=== PATIENT | male | born 1975 | race Caucasian/White ===

== ENCOUNTER 2019-09-15 12:41 | Outpatient (REF) | payer BC, SELFPAY ==
[2019-09-15 19:22] LABS: C-Reactive Protein 0.07 mg/dL (0.0-0.3)
[2019-09-18 11:34] LABS: Hepatitis C Ab w Rflx HCV PCR Negative (Negative)
[2019-09-18 13:00] LABS: Lyme Ab w Rflx to Lyme Confirm Negative (Negative)
[2019-09-18 13:26] LABS: HIV-1/2 Ag & Ab Screen Negative (Negative)
== END 2019-09-15 13:01 ==
LOC: NCHCN 12:41
PROVIDERS: PCP Family Medicine; Visit Provider Family Medicine
DX: M19.90 Unspecified osteoarthritis, unspecified site (principal); Z00.00 Encounter for general adult medical examination without abnormal findings; Z11.4 Encounter for screening for human immunodeficiency virus [HIV]; Z11.59 Encounter for screening for other viral diseases
CPT/HCPCS: 86803; 87389; 86140; 86618

== ENCOUNTER 2020-04-29 16:44 | Outpatient (REF) | payer BC, SELFPAY ==
[2020-05-01 05:43] LABS: SARS-CoV-2 RNA Undetected (Undetected); SARS-CoV-2 Specimen Source Nasopharynx
== END 2020-04-29 17:04 ==
LOC: NCHCN 16:44
PROVIDERS: PCP Family Medicine; Visit Provider Nurse Practitioner Family
DX: Z20.828 Contact with and (suspected) exposure to other viral communicable diseases (principal)
CPT/HCPCS: U0003

== ENCOUNTER 2021-07-23 15:34 | Outpatient (REF) | payer BC, SELFPAY ==
[2021-07-23 16:38] LABS: Hemoglobin A1C 4.8 % (<5.7)
[2021-07-28 15:32] LABS: IgA 99 mg/dL (85-499); Interpretation (See Note); Tissue Transglutaminase IgA <1.2 U/mL (<4.0)
== END 2021-07-23 15:35 | disposition home or self-care (01) ==
LOC: NCHCN 15:34
PROVIDERS: PCP Family Medicine; Visit Provider Family Medicine
DX: Z00.00 Encounter for general adult medical examination without abnormal findings (principal); Z83.79 Family history of other diseases of the digestive system
CPT/HCPCS: 82784; 83516; 83036

== ENCOUNTER 2021-12-09 13:42 | Emergency (ER) | payer BC, SELFPAY ==
[2021-12-09] VITALS (14 sets, daily range): BP systolic 121–145; BP diastolic 73–86; PULSE 73–87; RESP 11–25; TEMP 36.8–37; O2SAT 97–100
--- NOTE | 2021-12-09 13:30 | RT.EKG_ITS ---
APPROVED REPORT Exam: Resting ECG Reason for Exam: chest pressure Patient Location: E HR:75 bpm ECG Measurements Heart Rate 75 AXIS WV 151 P 56 QRSd 96 QRS 86 QT 364 T 47 QTc 406 Conclusion Sinus rhythm...normal P axis, V-rate 60- 99 ST elev, probable normal early repol pattern...ST elevation, age<55. Sinus. Normal axis. Benign early repolarization. No STEMI. I have reviewed and interpreted ECG and agree with software generated interpretation.
--- NOTE | 2021-12-09 13:42 | W.ED.GENAD ---
Discharge Plan Disposition Patient Disposition: AGAINST MEDICAL ADVICE Condition: Stable Discharge Details Clinical Impression: TIA (transient ischemic attack) Primary Care Provider: Royer Cabrera ED Provider: Ce Brown Home Meds and New Rx's Prescriptions: New aspirin 81 mg tablet,chewable 81 mg PO DAILY Qty: 30 0RF clopidogrel [Plavix] 75 mg tablet 75 mg PO DAILY Qty: 30 0RF Discharge Instructions Instructions: Transient Ischemic Attack (ED) Additional Instructions: Your lab work, EKG and imaging today is reassuring and shows no evidence of acute concerning or significant findings. However, due to your symptom presentation, it is recommended by the emergency department and neurology to stay for admission for further work-up of your symptoms as they may be indicative of a transient ischemic attack or a warning sign of a stroke. Since you have decided to leave the hospital AGAINST MEDICAL ADVICE, it is recommended that you follow-up with your primary care doctor as soon as possible in the next few days for referral for outpatient MRI of your brain, outpatient echocardiogram and outpatient carotid ultrasound. The neurologist is recommending you start aspirin 81 mg daily and Plavix 75 mg daily to take for at least the next 30 days. You are being sent with prescriptions for both of these medications. These medications are antiplatelet medications and indicated in treatment for a transient ischemic attack or possible stroke. You have been placed on care management list to help arrange for follow-up appointment with your primary care doctor for reevaluation within the next few days. You have also been placed on care management list for referral for an appointment with neurology. Return immediately to the emergency department if you develop any worsening or new concerning symptoms. Referrals: Sasha Rai MD [ [facility] STAFF PHYSICIAN] - Discharge Data Discharge Date/Time-TO BE ENTERED AT DEPARTURE: 12/09/21 18:43 Discharge Physician: Ce Brown Medical Decision Making 1415 -- 45-year-old male with no significant past medical history presents the ED with complaint of left hand shaking and paresthesias associated with lightheadedness and palpitations that started approximately 1 hour prior to arrival. Symptoms mostly resolved. He denies any complaint of chest pain. EKG notes a rate of 75, sinus, benign early repol and no STEMI. His vitals are within normal limits. He appears comfortable and nontoxic. He has no focal deficits on exam. Given presentation history and presentation does not appear consistent with ACS, dissection. Consider anxiety, TIA, CVA, less likely seizure, ACS. Will place an IV, bolus IV fluids, screening labs, chest x-ray, CT head. 1530 --labs and imaging reviewed and unremarkable. Normal white blood cell count. Negative D-dimer. Troponin negative. CTA head and neck negative for acute findings. Chest x-ray negative for acute findings. Case discussed with Dr. Rai who discussed that there is a new type of TIA called limb shaking TIA. She recommends a CTA head and neck and admission work-up for TIA. Would recommend dual antiplatelet therapy with 81 mg of aspirin and 75 mg Plavix daily with 300 mg Plavix load. 1700 --CTA head and neck negative. Patient reassessed and he remains asymptomatic. Repeat troponin pending. 1745 -- Repeat EKG unchanged. Repeat troponin negative. Patient reassessed and he remains asymptomatic. Discussed at length with patient that I would recommend admission to the hospital for continued telemetry monitoring with plan for MRI brain in the morning and likely plan for echocardiogram and carotid ultrasound. Patient is declining admission to the hospital. Despite our efforts, the patient has decided to leave against medical advice. He has a normal mental status and full decisional capacity. The patient understands his condition and the risks of leaving AMA, including BUT NOT LIMITED TO permanent disability, , etc., and has had an opportunity to ask questions about his medical condition. The patient has been informed that he may return for care at any time. He has been placed on care management's list to follow up with Dr. Cabrera within the next few days for re-evaluation and for referral for urgent MRI brain, echo, and carotid US as soon as possible. Patient was also placed on care management's list for follow up with Dr. Rai within the next 1 to 2 weeks. Patient was advised to return immediately to the emergency department if he develops any worsening or new concerning symptoms. Medical Records Medical records reviewed: Yes I reviewed the patient's medical records. Imaging Data Radiologic Study: Radiologist's impression: CT BRAIN ? NECK CTA CLINICAL HISTORY: ? L hand shaking, numbness, tingling, r/o acute cva. ? TECHNIQUE:? Imaging Protocol:? Axial CT angiography was performed with multi-slice acquisition and multi-planar and/or 3D reconstructions. CONTRAST MATERIAL:? Intravenous: Omnipaque 350 Contrast volume:structured data in ml Intravenous: Omnipaque 350 Contrast volume:85 COMPARISON:? CT CT HEAD WO from 12/09/2021 FINDINGS: CT Head? W contrast: Ventricles and Extra axial spaces: Normal in size and morphology for the patient's age. Hemorrhage: None. Cerebral parenchyma: Normal. Midline shift: None. Brainstem/Cerebellum: Normal. Calvarium: Normal. Visualized Paranasal sinuses/Mastoids: Chronic sinus disease. Soft Tissues: Unremarkable. Enhancement: Normal. CTA Brain W: Internal Carotid Arteries: Petrous: Normal. Cavernous: Normal. Cerebral: Normal. Middle Cerebral Arteries: Right:? No aneurysm, occlusion or significant stenosis. Left:? No aneurysm, occlusion or significant stenosis. Anterior Cerebral Arteries: Right:? No aneurysm, occlusion or significant stenosis. Left:? No aneurysm, occlusion or significant stenosis. Posterior cerebral Arteries: Right:? No aneurysm, occlusion or significant stenosis. Left:? No aneurysm, occlusion or significant stenosis. Vertebral Arteries: Right:? No aneurysm, occlusion or significant stenosis. Left:? No aneurysm, occlusion or significant stenosis. Basilar Artery:? No aneurysm, occlusion or significant stenosis. CTA Neck W: Common Carotid: Right:? No aneurysm, occlusion or significant stenosis. Left:? No aneurysm, occlusion or significant stenosis. External Carotid: Right:? No aneurysm, occlusion or significant stenosis. Left:? No aneurysm, occlusion or significant stenosis. Internal Carotid: Right:? No aneurysm, occlusion or significant stenosis. Left:? No aneurysm, occlusion or significant stenosis. Vertebral Artery: Right:? No aneurysm, occlusion or significant stenosis. Left:? No aneurysm, occlusion or significant stenosis. Lung Apices: Normal. Bones: Minimal degenerative disc changes.? Soft Tissues: Normal. IMPRESSION: 1. Normal CTA examination of the [place]. 2. Unremarkable CT Head. 3. Normal CTA examination of the neck.? No evidence of dissection.? CT HEAD WO CLINICAL HISTORY: ? L hand numbness/shaking, r/o cva. ? TECHNIQUE:? Imaging Protocol: Axial computed tomography images with coronal and sagittal reformatted images were created and reviewed COMPARISON:? No exams were available for comparison FINDINGS: Ventricles and Extra axial spaces: Normal in size and morphology for the patient's age. Hemorrhage: None. Cerebral parenchyma: Normal. Midline shift: None. Brainstem/Cerebellum: Normal. Calvarium: Normal. Visualized Paranasal sinuses/Mastoids: Mucous retention in within maxillary, ethmoid and frontal sinuses.? Soft Tissues: Unremarkable. IMPRESSION: Chronic sinus disease.? No acute intracranial process. ?XR CHEST 2V PA ? LATERAL CLINICAL HISTORY:? palpitations, fluttering, r/o acute disease TECHNIQUE:? 2D digital imaging was performed. COMPARISON:? No exams were available for comparison FINDINGS: MEDIASTINUM: Normal.? HEART: Normal. PULMONARY VASCULATURE: Normal. LUNGS: Clear.? Hyperinflation. PLEURAL SPACE: No pleural effusion or pneumothorax. BONE:Unremarkable for age.? IMPRESSION: Hyperinflation no acute abnormality.? Lab Data Lab results reviewed: Yes I reviewed the patient's lab results. Labs: Laboratory Tests Range/Units 12/09/21 12/09/21 12/09/21 14:04 14:04 14:04 WBC (4.4-10.8) 10^3/uL 5.76 RBC (4.36-5.78) 10^6/uL 4.97 Hgb (13.5-17.5) g/dL 15.6 Hct (40.0-50.0) % 43.8 MCV (80-95) fL 88.1 MCH (27.0-33.0) pg 31.4 MCHC (32.0-36.0) % 35.6 RDW (11.8-14.1) % 12.9 Plt Count (130-400) 10^3/uL 232 MPV (8.0-11.0) fL 9.4 Immature Gran % 0.5 Neutrophils % 60.2 Lymphocytes % 32.5 Monocytes % 5.4 Eosinophils % 0.9 Basophils % 0.5 Nucleated RBC % % 0 Absolute Neutrophils (1.2-6.7) 10^3/uL 3.47 Absolute Lymphocytes (1.2-3.4) 10^3/uL 1.87 Absolute Monocytes (0.1-0.8) 10^3/uL 0.31 Absolute Eosinophils (0.0-0.7) 10^3/uL 0.05 Absolute Basophils (0.0-0.2) 10^3/uL 0.03 D-Dimer (<500) ng/mlFEU 235 Sodium (136-145) mmol/L 141 Potassium (3.5-5.1) mmol/L 3.8 Chloride (98-107) mmol/L 106 Carbon Dioxide (21.0-32.0) mmol/L 29.0 Anion Gap (3-11) mmol/L 6.0 BUN (7-18) mg/dL 14 Creatinine (0.70-1.30) mg/dL 1.0 Estimated GFR/1.73 m2 (mL/min/1.73m2) >= 60.00 Glucose (74-106) mg/dL 149 H Calcium (8.5-10.1) mg/dL 9.0 Magnesium (1.8-2.4) mg/dL 2.1 Total Bilirubin (0.2-1.0) mg/dL 0.6 AST (15-37) U/L 23 ALT (16-63) U/L 31 Alkaline Phosphatase (46-116) U/L 87 Troponin I (<or=60) ng/L < 50 Total Protein (6.4-8.2) g/dL 7.2 Albumin (3.4-5.0) g/dL 4.1 Range/Units 12/09/21 17:10 WBC (4.4-10.8) 10^3/uL RBC (4.36-5.78) 10^6/uL Hgb (13.5-17.5) g/dL Hct (40.0-50.0) % MCV (80-95) fL MCH (27.0-33.0) pg MCHC (32.0-36.0) % RDW (11.8-14.1) % Plt Count (130-400) 10^3/uL MPV (8.0-11.0) fL Immature Gran % Neutrophils % Lymphocytes % Monocytes % Eosinophils % Basophils % Nucleated RBC % % Absolute Neutrophils (1.2-6.7) 10^3/uL Absolute Lymphocytes (1.2-3.4) 10^3/uL Absolute Monocytes (0.1-0.8) 10^3/uL Absolute Eosinophils (0.0-0.7) 10^3/uL Absolute Basophils (0.0-0.2) 10^3/uL D-Dimer (<500) ng/mlFEU Sodium (136-145) mmol/L Potassium (3.5-5.1) mmol/L Chloride (98-107) mmol/L Carbon Dioxide (21.0-32.0) mmol/L Anion Gap (3-11) mmol/L BUN (7-18) mg/dL Creatinine (0.70-1.30) mg/dL Estimated GFR/1.73 m2 (mL/min/1.73m2) Glucose (74-106) mg/dL Calcium (8.5-10.1) mg/dL Magnesium (1.8-2.4) mg/dL Total Bilirubin (0.2-1.0) mg/dL AST (15-37) U/L ALT (16-63) U/L Alkaline Phosphatase (46-116) U/L Troponin I (<or=60) ng/L < 50 Total Protein (6.4-8.2) g/dL Albumin (3.4-5.0) g/dL ECG Data Attestation: I personally reviewed and interpreted this ECG (s) as follows: Interpretation: #1 -- Rate of 75, sinus, benign early repolarization noted in V2 and V3. No STEMI. #2 -- Rate of 78, sinus, benign early repolarization noted in V2 and V3. No STEMI. HPI General Mode of arrival: ambulatory. Date/Time Provider Initiated Documentation: 12/09/21 13:43. Limitations to Documentation: no limitations. Information obtained by: patient. HPI Narrative: Patient is a 45-year-old male with no significant past medical history presents the ED with a complaint of left hand shaking, tingling and numbness extending to his forearm associated with fluttering and palpitations that occurred while sitting eating lunch today. Patient states he had finished painting at home and sat down to eat 9. He states he was working on the computer and noticed shaking of his left hand. He states he then developed tingling and numbness in his left hand, mostly in his fourth and fifth fingers but that extended to his left forearm, mostly on the medial aspect. He states after this he developed a feeling of lightheadedness fluttering or palpitations in his chest. He denies any chest pain, shortness of breath, cough, nausea, vomiting, abdominal pain, headache, or other extremity weakness or numbness. He denies any recent illnesses and states he has been feeling fine before this episode. He states he during a few cuts that he daily and he states he had to cut with him today. He denies any other recent alcohol or drug use. Related Data Home Medications Medication Instructions Recorded Confirmed aspirin 81 mg chewable tablet 81 mg PO DAILY #30 tab 12/09/21 clopidogrel 75 mg tablet (Plavix) 75 mg PO DAILY #30 tab 12/09/21 Previous Rx's Medication Instructions Recorded aspirin 81 mg chewable tablet 81 mg PO DAILY #30 tab 12/09/21 clopidogrel 75 mg tablet (Plavix) 75 mg PO DAILY #30 tab 12/09/21 Allergies Allergy/AdvReac Type Severity Reaction Status Date / Time No Known Allergies Allergy Verified 12/09/21 13:51 General Stated Complaint: Chest Pain JOE: 2 Review of Systems All systems reviewed & are unremarkable except as noted in HPI and below Constitutional Constitutional: Reports as per HPI, Denies chills, Denies excessive sweating, Denies fatigue and Denies fever(s) Eyes Eyes: Denies blurry vision ENT Ears, Nose, Mouth, and Throat: Denies dizziness, Denies sore throat and Denies throat swelling Cardiovascular Cardiovascular: Denies chest pain, Reports rapid heart rate and Denies dyspnea Respiratory Respiratory: Denies cough and Denies dyspnea Gastrointestinal Gastrointestinal: Denies abdominal pain, Denies diarrhea and Denies vomiting Genitourinary Genitourinary: Denies hematuria and Denies dysuria Musculoskeletal Musculoskeletal: Denies back pain and Reports numbness (L hand) Integumentary/Breasts Skin/Breast: Denies lesions and Denies rash Neurologic Neurologic: Denies behavioral changes, Denies confusion, Denies dizziness, Denies localized weakness and Reports numbness (L hand) Psychiatric Psychiatric: Denies behavioral changes, Denies confusion and Denies depression Endocrine Endocrine: Denies excessive sweating and Denies fatigue Hematologic/Lymphatic Hematologic/Lymphatic: Denies easy bruising and Denies lymphadenopathy Allergic/Immunologic Allergic/Immunologic: Denies throat swelling PFSH All Active Problems (Updated 12/09/21 @ 18:06 by Ce Brown DO) TIA (transient ischemic attack) (Acute) Medical History (Updated 12/09/21 @ 18:06 by Ce Brown DO) No significant past medical history Surgical History (Updated 12/09/21 @ 14:59 by Ce Brown DO) H/O vasectomy Social History Smoking/Tobacco Use Status: Never Smoking risk assessment performed?: Yes Alcohol Intake: current Alcohol Intake frequency: a few times a week Drug use: Never Do you feel safe at home: Yes Do you feel safe in your relationship?: Yes Exam Const General: cooperative and healthy appearing Orientation: alert, awake and oriented x3 HENMT Head: normal to inspection Ears: hearing grossly normal bilaterally and external ears normal General nose exam: external nose normal Face and sinus: normal facial exam Mouth: oral mucosae normal Teeth and gingiva: dentition normal Throat: posterior oropharynx normal Eyes General: appearance normal, both eyes and all related structures Eyelids: eyelids normal Pupils: PERRL EOM: EOM intact bilaterally Neck Neck: normal visual inspection Lymphatic: no lymphadenopathy noted Chest Chest: normal inspection of the chest Resp Effort & Inspection: normal respiratory effort and able to speak in complete sentences Auscultation: clear to auscultation bilaterally Cardio Rate: regular rate Rhythm: regular rhythm GI Inspection: normal to inspection Palpation: soft, not firm, no guarding, no hepatosplenomegaly, no masses and nontender Auscultation: normal bowel sounds Back/Spine/Pelvis Back: no CVA tenderness Skin General skin exam: no rashes or lesions noted Neuro General: patient alert, patient awake, moves all extremities, no meningeal signs and no focal motor deficits Cranial Nerves: CN's II-XI intact bilaterally Cognition: normal cognition Speech: speech normal Gait: normal gait Motor: muscle tone normal throughout and strength 5/5 throughout Sensory Exam: no sensory deficits noted Other: Bilateral radial/median/ulnar motor nerve function intact. Altered sensation overlying ulnar nerve distribution of left hand fourth and fifth fingers compared to right hand. Biceps/triceps muscle strength 5/5 b/l. Extrem General: normal to inspection, full ROM and capillary refill normal Other: B/L radial and ulnar pulses intact. Psych Appearance: grossly normal Mental Status: mental status grossly normal Speech and Movement: speech and movement normal Affect: normal affect Thought Process: normal
[2021-12-09 14:14] LABS: Abs Immature Grans 0.03 10^3/uL (0.0-0.06); Absolute Basophil Count 0.03 10^3/uL (0.0-0.2); Absolute Eosinophil Count 0.05 10^3/uL (0.0-0.7); Absolute Lymphocyte Count 1.87 10^3/uL (1.2-3.4); Absolute Monocyte Count 0.31 10^3/uL (0.1-0.8); Absolute Neutrophil Count 3.47 10^3/uL (1.2-6.7); Basophils % 0.5; Eosinophils % 0.9; HCT 43.8 % (40.0-50.0); HGB 15.6 g/dL (13.5-17.5); Immature Grans % 0.5; Lymphocytes % 32.5; MCH 31.4 pg (27.0-33.0); MCHC 35.6 % (32.0-36.0); MCV 88.1 fL (80-95); MPV 9.4 fL (8.0-11.0); Monocytes % 5.4; Neutrophils % 60.2; Nucleated RBC 0 %; Platelet Count 232 10^3/uL (130-400); RBC 4.97 10^6/uL (4.36-5.78); RDW 12.9 % (11.8-14.1); RDW-SD 42.1 fL; WBC 5.76 10^3/uL (4.4-10.8)
[2021-12-09 14:28] LABS: ALT 31 U/L (16-63); AST 23 U/L (15-37); Albumin 4.1 g/dL (3.4-5.0); Alkaline Phosphatase 87 U/L (46-116); BUN 14 mg/dL (7-18); Bilirubin, Total 0.6 mg/dL (0.2-1.0); Chloride 106 mmol/L (98-107); Glucose 149 mg/dL (74-106); Magnesium 2.1 mg/dL (1.8-2.4); Potassium 3.8 mmol/L (3.5-5.1); Sodium 141 mmol/L (136-145); Total Protein 7.2 g/dL (6.4-8.2); Troponin I < 50 ng/L (<or=60)
--- NOTE | 2021-12-09 14:30 | DI.RAD_ITS ---
Exam(s) XR CHEST 2V PA LATERAL EXAM: XR CHEST 2V PA LATERAL CLINICAL HISTORY: palpitations, fluttering, r/o acute disease TECHNIQUE: 2D digital imaging was performed. COMPARISON: No exams were available for comparison FINDINGS: MEDIASTINUM: Normal. HEART: Normal. PULMONARY VASCULATURE: Normal. LUNGS: Clear. Hyperinflation. PLEURAL SPACE: No pleural effusion or pneumothorax. BONE:Unremarkable for age. IMPRESSION: Hyperinflation no acute abnormality. DATA REPOSITORY: RADIATION DOSE DELIVERED:
--- NOTE | 2021-12-09 14:30 | DI.CT_ITS ---
Exam(s) CT HEAD WO EXAM: CT HEAD WO CLINICAL HISTORY: L hand numbness/shaking, r/o cva. TECHNIQUE: Imaging Protocol: Axial computed tomography images with coronal and sagittal reformatted images were created and reviewed COMPARISON: No exams were available for comparison FINDINGS: Ventricles and Extra axial spaces: Normal in size and morphology for the patient's age. Hemorrhage: None. Cerebral parenchyma: Normal. Midline shift: None. Brainstem/Cerebellum: Normal. Calvarium: Normal. Visualized Paranasal sinuses/Mastoids: Mucous retention in within maxillary, ethmoid and frontal sinu ses. Soft Tissues: Unremarkable. IMPRESSION: Chronic sinus disease. No acute intracranial process. RADIATION DOSE DELIVERED: 837.64mGy.cm Total DLP DATA REPOSITORY: All CT scans at this facility are submitted to the National Radiology Data Registry (NRDR) Dose Index Registry (DIR) with the [employer] ([employer]). RADIATION OPTIMIZATION: All CT scans at this facility use at least one of these dose optimization te chniques: automated exposure control; mA and/or kV adjustment per patient size (includes targeted exa ms where dose is matched to clinical indication); or iterative reconstruction.
[2021-12-09 14:39] LABS: D-Dimer 235 ng/mlFEU (<500)
[2021-12-09] MEDS: Normal Saline 1,000 ML 1000 ML IV (14:47)
--- NOTE | 2021-12-09 15:45 | DI.CT_ITS ---
Exam(s) CT BRAIN NECK CTA EXAM: CT BRAIN NECK CTA CLINICAL HISTORY: L hand shaking, numbness, tingling, r/o acute cva. TECHNIQUE: Imaging Protocol: Axial CT angiography was performed with multi-slice acquisition and mu lti-planar and/or 3D reconstructions. CONTRAST MATERIAL: Intravenous: Omnipaque 350 Contrast volume:structured data in ml Intravenous: Omnipaque 350 Contrast volume:85 COMPARISON: CT CT HEAD WO from 12/09/2021 FINDINGS: CT Head W contrast: Ventricles and Extra axial spaces: Normal in size and morphology for the patient's age. Hemorrhage: None. Cerebral parenchyma: Normal. Midline shift: None. Brainstem/Cerebellum: Normal. Calvarium: Normal. Visualized Paranasal sinuses/Mastoids: Chronic sinus disease. Soft Tissues: Unremarkable. Enhancement: Normal. CTA Brain W: Internal Carotid Arteries: Petrous: Normal. Cavernous: Normal. Cerebral: Normal. Middle Cerebral Arteries: Right: No aneurysm, occlusion or significant stenosis. Left: No aneurysm, occlusion or significant stenosis. Anterior Cerebral Arteries: Right: No aneurysm, occlusion or significant stenosis. Left: No aneurysm, occlusion or significant stenosis. Posterior cerebral Arteries: Right: No aneurysm, occlusion or significant stenosis. Left: No aneurysm, occlusion or significant stenosis. Vertebral Arteries: Right: No aneurysm, occlusion or significant stenosis. Left: No aneurysm, occlusion or significant stenosis. Basilar Artery: No aneurysm, occlusion or significant stenosis. CTA Neck W: Common Carotid: Right: No aneurysm, occlusion or significant stenosis. Left: No aneurysm, occlusion or significant stenosis. External Carotid: Right: No aneurysm, occlusion or significant stenosis. Left: No aneurysm, occlusion or significant stenosis. Internal Carotid: Right: No aneurysm, occlusion or significant stenosis. Left: No aneurysm, occlusion or significant stenosis. Vertebral Artery: Right: No aneurysm, occlusion or significant stenosis. Left: No aneurysm, occlusion or significant stenosis. Lung Apices: Normal. Bones: Minimal degenerative disc changes. Soft Tissues: Normal. IMPRESSION: 1. Normal CTA examination of the [place]. 2. Unremarkable CT Head. 3. Normal CTA examination of the neck. No evidence of dissection. RADIATION DOSE DELIVERED: 1,240.48mGy.cm Total DLP 1,240.48mGy.cm Total DLP 1,240.48mGy.cm Total DLP DATA REPOSITORY: All CT scans at this facility are submitted to the National Radiology Data Registry (NRDR) Dose Index Registry (DIR) with the [employer] ([employer]CR). RADIATION OPTIMIZATION: All CT scans at this facility use at least one of these dose optimization te chniques: automated exposure control; mA and/or kV adjustment per patient size (includes targeted exa ms where dose is matched to clinical indication); or iterative reconstruction.
[2021-12-09] MEDS: Normal Saline Flush 10 ML SYR IVP (16:20)
--- NOTE | 2021-12-09 17:00 | RT.EKG_ITS ---
APPROVED REPORT Exam: Resting ECG Reason for Exam: palpitations Patient Location: E HR:78 bpm ECG Measurements Heart Rate 78 AXIS PA 157 P 56 QRSd 88 QRS 84 QT 370 T 47 QTc 421 Conclusion Sinus rhythm...normal P axis, V-rate 60- 99 ST elev, probable normal early repol pattern...ST elevation, age<55. Sinus. Normal axis. Benign early repolarization. No STEMI. I have reviewed and interpreted ECG and agree with software generated interpretation.
[2021-12-09 17:50] LABS: Troponin I < 50 ng/L (<or=60)
--- NOTE | 2021-12-09 18:18 | NUR.NOTE ---
Nursing Note: Referral faxed to PCP/Dr. Cabrera for TIA/needs MRI brain, echo, carotid US/follow up with Dr Cabrera within the next few days. Needs follow up with Dr. Rai within the next week . Gail Christian
[2021-12-09] MEDS: Aspirin 81 MG CHEW CH (18:23)
[2021-12-09] MEDS: Clopidogrel 300 MG TAB PO (18:23)
--- NOTE | 2021-12-10 10:05 | CMACTNOTE_ITS ---
- If Service Date Differs Date of service: 12/10/21 Time of Service: 10:05 Care Management Activity Note Yao is seen in the ED for possible TIA. At the request of ED provider, CM coordinates a referral to [facility] neurology to assist Yao in obtaining a follow up appointment for further evaluation and treatment.
== END 2021-12-09 18:43 | disposition left against medical advice (07) ==
PROVIDERS: Emergency Provider Physician Assistant; PCP Family Medicine
DX: G45.9 Transient cerebral ischemic attack, unspecified (principal); R20.2 Paresthesia of skin; R07.89 Other chest pain; R20.0 Anesthesia of skin; R42 Dizziness and giddiness; Z53.29 Procedure and treatment not carried out because of patient's decision for other reasons; R00.2 Palpitations
CPT/HCPCS: 36415; 70496; 70498; 80053; 93005; 96360; 96361; 99285; 70450; 71046; 83735; 84484; 85025; 85379; 93010

== ENCOUNTER 2021-12-11 10:59 | Outpatient (CLI) | payer BC, SELFPAY ==
--- NOTE | 2021-12-11 10:00 | DI.US_ITS ---
APPROVED REPORT EXAM: Comprehensive 2D, Doppler, and color-flow Echocardiogram Patient Location: Out-Patient Dining Car Hop: Marilyn Rojas RDCS (AE) Indications: TIA, Sudden onset numbness and weakness Other Information Study Quality: Good Conclusion Normal left ventricular wall thickness and chamber size. Estimated ejection fraction is 60%. Wall m otion is normal Normal right ventricular size and systolic function Both atria are normal in size There is no structural or hemodynamically significant valvular disease Wall motion Left Ventricle The left ventricle is normal size. The left ventricular systolic function is normal. The left ventric ular ejection fraction is within the normal range. There is normal left ventricular wall thickness. T here is normal LV segmental wall motion. There is no ventricular septal defect visualized. LVEF is 60 %. Right Ventricle The right ventricle is normal size. The right ventricular systolic function is normal. The RVSP is 27 .4mmHg. Atria The left atrium size is normal. The right atrium size is normal. The interatrial septum is intact wit h no evidence for an atrial septal defect. Aortic Valve The aortic valve is normal in structure. Aortic valve is trileaflet. There is no aortic valvular sten osis. No aortic regurgitation is present. Mitral Valve The mitral valve is normal in structure. No evidence of mitral valve stenosis. Trace mitral regurgita tion. Tricuspid Valve The tricuspid valve is normal in structure. There is no tricuspid valve stenosis. Trace to mild tricu spid regurgitation. Pulmonic Valve The pulmonary valve is normal in structure. There is no pulmonic valvular stenosis. There is no pulmo maurilio valvular regurgitation. Great Vessels The aortic root is normal in size. Ascending aorta is not well visualized. Aortic arch is normal in c aliber. IVC is normal in size and collapses >50% with inspiration. Pericardium There is no pericardial effusion. 2D Dimensions IVSD d PLAX 0.80 cm M: 0.6-1.2 LV Vol A2C d MOD 109.8 mL LVPW d PLAX 0.88 cm M: 0.6 - 1.2 LV Vol A4C d MOD 119.8 mL LVID d PLAX 4.72 cm M: 4.2 - 5.8 LA vol/ BSA A2C s A-L 22.6 mL/m2 LVDs 3.15 cm M: 2.5 - 4.0 LA vol/ BSA A4C s A-L 18.9 mL/m2 Ao Root d 3.20 cm M: 3.1 - 3.7 LA Vol/ BSA Biplane s A-L 20.9 mL/m2 RA Area A4C 13.07 cm2 LA Area A4C s MOD 14.58 cm2 RA Vol/ BSA A4C s A-L 16.5 mL/m2 LA Area A2C s MOD 15.74 cm2 LV EF Teichholz 60.7 % LV EF A4C MOD 59.0 % LVEF (Britt's) 58.52 % M: 52 - 72 LV EF A2C MOD 60.4 % LV Volume 87.94 mL M: 62 - 150 LV EF Biplane MOD 58.5 % LV Volume Index 45.80 mL/m2 M: 34 - 74 SV 67.72 mL LV Vol Biplane MOD 115.7 mL SV Index 35.21 mL/m2 FS 32.40 % M-Mode TAPSE 2.82 cm (M/F) >1.7 LV Diastology MV E' medial 0.112 (>0.07 m/s) E/A Ratio 1.0 LV E/e MED 5.90 (<14) MV E Vmax 0.66 (0.4-1.3 m/s) MV E' lateral 0.126 (>0.1 m/s) MV A Vmax 0.65 (0.4-1.3 m/s) LV E/e LAT 5.25 (<14) MV E/A Ratio 1.00 MV E/E' medial 5.91 MV E/E' lateral 5.27 Aortic Valve LVOT Area 3.44 cm2 AoV Area Vmax 3.08 cm2 LVOT Vmax 1.10 m/s AoV Area/ BSA (Vmax) 1.60 cm2/m2 LVOT Mean Jose. 0.65 m/s RAFFI Mean Jose. 2.70 cm2 LVOT Peak Grad 4.8 mmHg RAFFI Mean Jose. Index 1.40 cm2/m2 LVOT Mean Grad 2.1 mmHg LVOT VTI 0.228 m LVOT Diam s 2.05 cm AoV Vmax 1.22 m/s Velocity Ratio 0.90 AoV Mean Jose. 0.83 m/s AoV Peak Grad 6.0 mmHg LVOT SV 78.49 mL AoV Mean Grad 3.1 mmHg AoV VTI 0.211 m AoV Area VTI 3.73 cm2 AoV Area/ BSA (VTI) 1.94 cm/m2 Mitral Valve MV DT 189 (160-240 msec) MV PHT 55 msec MV Area PHT 4.01 cm2 MV VTI 0.222 m MV Area VTI 3.54 (4.0-6.0 cm2) Pulmonary Valve PV Vmax 1.08 (0.5-1.5 m/s) RVOT Peak Gr. 3.10 mmHg PV Peak Grad 4.7 mmHg RVOT Mean Gr. 1.50 mmHg PV Mean Grad 2.4 mmHg RVOT VTI 0.191 m PV VTI 0.213 m RVOT Vmax 0.88 m/s Tricuspid Valve TR Peak Grad 24.3 mmHg TR Vmax 2.47 m/s RA Pressure 3.00 mmHg RVSP (TR) 27.4 mmHg
== END 2021-12-11 11:19 ==
PROVIDERS: PCP Family Medicine; Visit Provider Family Medicine
DX: G45.8 Other transient cerebral ischemic attacks and related syndromes (principal); R53.1 Weakness
CPT/HCPCS: 93306

== ENCOUNTER 2021-12-12 00:35 | Outpatient (CLI) | payer BC, SELFPAY ==
--- NOTE | 2021-12-12 | DI.MRI_ITS ---
Exam(s) MR BRAIN WO EXAM: MR BRAIN WO CLINICAL HISTORY: SUDDEN ONSET ARM NUMBNESS/WEAKNESS,? TIA,G45.9 TECHNIQUE: Multiplanar multisequence MRI of the brain was performed. COMPARISON: No exams were available for comparison FINDINGS: The ventricular system is normal in appearance. There are a couple of tiny foci of increased white matter signal in periventricular white matter bila terally, these are nonspecific but are statistically most likely to represent very early microvascula r ischemic changes... The orbital and temporal bone structures appear intact as does the pituitary. Incidental note is made of mucoperiosteal thickening of paranasal sinuses bilaterally consistent with mild chronic sinusitis maxillary ethmoid and frontal sinuses. Diffusion weighted imaging shows no evidence of infarction. Susceptibility weighted imaging shows no evidence of intracranial hemorrhage. There is normal flow void in the [place] vasculature. IMPRESSION: No evidence of acute intracranial process. DATA REPOSITORY:
== END 2021-12-12 00:55 ==
PROVIDERS: PCP Family Medicine; Visit Provider Family Medicine
DX: R20.0 Anesthesia of skin (principal); I67.89 Other cerebrovascular disease; J32.0 Chronic maxillary sinusitis; J32.1 Chronic frontal sinusitis; J32.2 Chronic ethmoidal sinusitis; G45.9 Transient cerebral ischemic attack, unspecified
CPT/HCPCS: 70551

== ENCOUNTER 2022-10-13 13:09 | Outpatient (REF) | payer BC, SELFPAY ==
[2022-10-13 16:52] LABS: Calculated LDL 87 mg/dL (<100); Cholesterol 185 mg/dL (<200); HDL Cholesterol 83 mg/dL (40-60); Triglyceride 78 mg/dL (<150)
== END 2022-10-13 13:10 | disposition home or self-care (01) ==
LOC: NCHCN 13:09
PROVIDERS: PCP Family Medicine; Visit Provider Family Medicine
DX: Z00.00 Encounter for general adult medical examination without abnormal findings (principal)
CPT/HCPCS: 80061

== ENCOUNTER 2023-03-17 14:13 | Outpatient (CLI) | payer BC, SELFPAY ==
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
== END 2023-03-17 14:33 ==
LOC: DI 14:14
PROVIDERS: PCP Family Medicine; Visit Provider Family Medicine
DX: M25.512 Pain in left shoulder (principal); V18.0XXD Pedal cycle driver injured in noncollision transport accident in nontraffic accident, subsequent encounter; X58.XXXD Exposure to other specified factors, subsequent encounter
CPT/HCPCS: 73030

== ENCOUNTER 2023-08-30 08:31 | Day surgery (SDC) | payer BC, SELFPAY ==
--- NOTE | 2023-08-29 14:41 | W.PM.DSUDISC ---
Date of service: 08/30/23 Time of Service: 09:58 Discharge Plan Disposition Patient Disposition: Home Condition: Good Discharge Details Reason For Visit: screening colonoscopy Attending Provider: Ulises Mathis Primary Care Provider: Royer Cabrera Home Meds and New Rx's Prescriptions: Discontinued bisacodyl [Dulcolax (bisacodyl)] 5 mg tablet,delayed release (DR/EC) 5 mg PO ONCE Qty: 4 0RF polyethylene glycol 3350 17 gram/dose powder 17 g PO DAILY Qty: 238 0RF Discharge Instructions Additional Instructions: Yao, we were able to complete your colonoscopy today without any difficulty. The quality of your prep was outstanding. I did find 1 small polyp. I removed it completely. It will take a week or 2 to get the results of the polyp report. We will use that information to guide when you should have your next colonoscopy. Worst-case scenario would be 3 years, best case scenario would be 10, and there are a couple other options in between. If you have any questions in the meantime, please do not hesitate to call or ask at any point. 1. If tolerated, consume a soft, low fiber diet for 1-2 days. 2[address] Do not drive, drink alcohol, operate machinery, make critical decisions, or do activities that require coordination or balance for 24 hours. 3. Because air was put into your colon during the procedure, expelling air from your rectum (passing gas or farting) is normal. 4. You may not have a bowel movement for 1-3 days because of the colonoscopy prep. This is normal. 5. Go directly to the emergency room if you notice any of the following: Develop chills (warm to touch), or if you have a thermometer and your temperature is above 101 Difficulty breathing or difficultly swallowing Persistent vomiting Severe abdominal pain, other than gas cramps Severe chest pain Black, tarry stools Any bleeding ? exceeding one tablespoon 6. Call your physician if the site where your intravenous was started becomes red, swollen, painful, and warm to touch. 7. Your physician has reviewed your pre-procedure medications. Please continue to take those medications as previously ordered. You will be given specific information/education regarding any changes to your medications before leaving. Activity:: Activity as Tolerated Diet:: As Tolerated Discharge Orders Discharge Orders: Discharge Order (Routine); Ordered 12/03/23 Ordered By: Ulises Mathis DS: Diagnosis Discharge Diagnosis (1) Encounter for screening colonoscopy: Status: Acute Asessment and Plan: Follow-up on polypectomy results
--- NOTE | 2023-08-29 14:42 | W.COLOREPORT ---
Date of service: 08/30/23 Time of Service: 09:59 Colonoscopy Report Date of procedure: 08/30/23 Pre-op diagnosis general: Screening colonoscopy Post-op diagnosis procedure note: other (Colon polyp) Procedure: Colonoscopy with polypectomy Surgeon: Ulises Mathis Anesthesia Type: General:No Airway Estimated blood loss (mL): 5 Pathology: other (0.25 cm polyp at 75 cm) Complications: None Disposition: same day Indications: Yao is 47 years old. He is here for his first screening colonoscopy Prep: Miralax/Dulcolax Procedure Start Time: 09:31 Procedure End Time: 09:48 Retraction Time: 12 Findings: 0.25 cm polyp at 75 cm Procedure Description: After the induction of monitored anesthetic care, and with the patient in left lateral decubitus position, I began by performing an external anorectal exam.? Perineum and skin were normal, as was the anal verge.? There was no evidence of external hemorrhoids.? Next, I performed a digital rectal exam.? I did not appreciate any abnormal findings.? Next, I advanced a colonoscope into the rectal vault.? I performed retroflexion.? This appeared normal.? Using insufflation, I then advanced the colonoscope beyond the rectal folds and into the sigmoid colon before advancing towards the cecum.? The quality of the prep was outstanding.? The scope was noted to be in the cecum by identification of the ileocecal valve and appendiceal orifice.? I then began withdrawing the colonoscope using repeated irrigation as necessary for full evaluation of the colonic mucosa. Around 75 cm from the anal verge I identified a 0.25 cm polyp. ?It appeared flat in character. ?I was able to remove this with a cold forcep polypectomy. ?I examined the site, and there was minimal bleeding. ?Once this was completed, I continued to withdraw the scope and examine the remainder of the colonic mucosa.?Once the scope was withdrawn to the level of the rectum, great care was taken to examine portions of the rectal folds.? Finally, the scope was withdrawn and the patient was brought to the same-day surgery recovery unit as the anesthetic wore off. ?The findings and instructions were shared with the patient prior to discharge. [place] Bowel Prep [place] Bowel Prep Right Colon: 3 Left Colon: 3 Transverse Colon: 3 Total Score: 9
[2023-08-30 08:57] VITALS: BP 114/80; PULSE 86; RESP 20; TEMP 36.2; O2SAT 97
--- NOTE | 2023-08-30 09:07 | ANES.PREOP_ITS ---
General Info Date of Service Date Performed: 08/30/23 Height: 5 ft 10 in Weight: 70.4 kg Body Mass Index (BMI): 22.2 Surgical Procedure: Operation Date: 08/30/23 09:50 Proposed Procedure Side Surgeon jeffery Mathis MD Meds Allergies and Home Medications Allergies Allergy/AdvReac Type Severity Reaction Status Date / Time No Known Allergies Allergy Verified 08/30/23 08:53 Current Visit Medications: Current Medications Generic Name Dose Route Start Last Admin Trade Name Freq PRN Reason Stop Dose Admin Hyoscyamine Sulfate 0.125 mg 08/29/23 14:43 Hyoscyamine 0.125 Mg Sl/Oral/Chew SL 09/28/23 14:42 DIRECTED PRN Ringer's Solution 1,000 mls @ 80 mls/hr 08/30/23 06:00 IV 08/30/23 23:59 [facility] IV Miscellaneous Supplies 1 each 08/30/23 06:00 Iv Access IV 08/30/23 23:59 DIRECTED NATALIE Ondansetron HCl 4 mg 08/29/23 14:43 Ondansetron 4 Mg/2 Ml Vial IVP 09/28/23 14:42 Q4H PRN PRN Nausea / Vomiting Sodium Chloride 0 ml 08/30/23 06:00 Normal Saline Flush 10 Ml Syr IV 08/30/23 23:59 PRN PRN Sodium Chloride 0 ml 08/30/23 06:00 Normal Saline 10 Ml Vial IJ 08/30/23 23:59 DIRECTED PRN Sterile Water 0 ml 08/30/23 06:00 Water,Injection,Sterile 10 Ml Vial IJ 08/30/23 23:59 DIRECTED PRN PFSH Active Problems Active Problems: Problem Status Onset Code Encounter for screening colonoscopy Z12.11 Palpitation R00.2 Ulnar neuropathy at elbow of left upper extremity G56.22 Essential tremor G25.0 Nonspecific paroxysmal spell R40.4 Medical History Medical History Allergic rhinitis No significant past medical history Pes planus Surgical History Surgical History H/O vasectomy Tobacco Smoking/Tobacco Use Status: Never Alcohol Alcohol Intake: current Alcohol intake frequency: a few times a week Alcohol type: beer and wine Substance Use Substance use: Never Substance use type: does not use Details: alcohol: t-2, 12 ounces Vital Signs and Lab Results Vital Signs Most Recent Vital Signs in EMR: Most Recent Vital Signs Temp Pulse Resp BP Pulse Ox 36.2 C L 86 20 114/80 97 08/30/23 08:57 08/30/23 08:57 08/30/23 08:57 08/30/23 08:57 08/30/23 08:57 Lab Results Blood Type / Crossmatch: No Data to Display Complete Blood Count: No Data to Display Complete Metabolic Panel: No Data to Display Liver Function Panel: No Data to Display Coagulation Panel: No Data to Display Cardiac Panel: No Data to Display Arterial Blood Gas: No Data to Display Venous Blood Gas: No Data to Display Pancreas Panel: No Data to Display Thyroid Panel: No Data to Display Infectious Disease: No Data to Display Blood Cultures: No Data to Display Toxicology Panel: No Data to Display Imaging and Studies Imaging and Studies Study information below may be from another EMR and interpreted by another provider. Please see original notes in EMR for more complete details. EKG Summary: 12/09/2021: EKG PATIENT NAME: Yao Trammell UNIT #: [id number] ORDERING PROVIDER: Nisha Patton DO PRIMARY CARE PROVIDER: JAY GARDUNO MD DATE/TIME OF SERVICE: 12/09/211706 : 1975 PERFORMING LOCATION: ER APPROVED REPORT Exam: Resting ECG Reason for Exam: palpitations Patient Location: E HR:78 bpm ECG Measurements Heart Rate 78 AXIS ME 157 P 56 QRSd 88 QRS 84 QT 370 T47 QTc 421 Conclusion Sinus rhythm...normal P axis, V-rate 60- 99 ST elev, probable normal early repol pattern...ST elevation, age<55. Sinus. Normal axis. Benign early repolarization. No STEMI. I have reviewed and interpreted ECG and agree with software generated interpretation. <Electronically signed by NISHA PATTON DO in OV> E-Sign Date: 12/09/21 E-Sign Time: 182 ADDENDUM APPROVED REPORT Exam: Resting ECG Reason for Exam: palpitations Patient Location: E HR:78 bpm ECG Measurements Heart Rate 78 AXIS ME 157 P 56 QRSd 88 QRS 84 QT 370 T47 QTc 421 Conclusion Sinus rhythm...normal P axis, V-rate 60- 99 ST elev, probable normal early repol pattern...ST elevation, age<55. Sinus. Normal axis. Benign early repolarization. No STEMI. I have reviewed and interpreted ECG and agree with software generated interpretation. I have reviewed and I agree with the emergency room physician's ECG interpretation. Echocardiogram Summary: 12/11/2021: Conclusion Normal left ventricular wall thickness and chamber size. Estimated ejection fraction is 60%. Wall motion is normal Normal right ventricular size and systolic function Both atria are normal in size There is no structural or hemodynamically significant valvular disease Anesthesia Assessment and Plan Anesthesia History Personal History: No History of Anesthesia Complications Family History: No Family History of Anesthesia Complications Exercise Tolerance Exercise Tolerance: Metabolic Equivalents>4 Pertinent Negatives Pertinent Negatives: No Symptoms of GERD, No Major Cardiovascular Symptoms or Complaints and No Major Pulmonary Symptoms or Complaints Cardiac & Pulmonary Exam Cardiac Exam: Normal S1/S2 Heart Sounds Pulmonary Exam: Clear Bilateral Breath Sounds Implantable Cardiac Device Does patient have a Pacemaker or an ICD?: No Airway Exam Known Difficult Airway: No Mallampati Class: 1 Mouth Opening: Normal (> 3cm) Thyromental Distance: Greater than 3 cm Neck Range of Motion: Full ROM Neck Circumference: Normal Teeth Condition: Normal Dentition ASA Classification ASA Score: ASA 2 Emergency Case?: No NPO Status NPO Status: NPO Clears >2 hours, Solids >8 hours Anesthesia Plan Resuscitation Status: Full Code Anesthesia Technique: General Anesthesia Airway Planned: Natural Airway Monitors Used: Standard Monitors
[2023-08-30 09:10] VITALS: BMI 22.2
[2023-08-30] MEDS: Lactated Ringers 1,000 ML 80 ML IV (09:10)
--- NOTE | 2023-08-30 09:42 | BOWEL_PTH ---
PATIENT: Yao Trammell LOC: [facility] U#:[id number] AGE/SX: 47/M ROOM: RE08/30/[address]: Ulises Mathis MD : 1975 BED: DIS: 08/30/2023 SPEC #: [id number] RECD: 08/30/23 12:18 STATUS: MENDEZ RE #: [id number] APPLE: 08/30/23 09:[address]: Ulises Mathis DEPT: Surgical Specimen RECD BY: Katherine Stout ENTERED: 08/30/23 12:18 SP TYPE: Bowel OTHR DR: Royer Cabrera Tissues: 1 - BIOPSY BOWEL Procedures: GROSS AND MICRO LEVEL 4 Comments: [id number]
[2023-08-30 10:10] VITALS: BP 113/92; PULSE 66; RESP 18; TEMP 36.4; O2SAT 97
--- NOTE | 2023-08-30 11:34 | W.ANESPOSTOP ---
Postoperative Evaluation Date, Time and Location Date Performed: 08/30/23 Time Performed: 10:01 Patient Location: Day Surgery Unit Vital Signs Most Recent Imported Vital Signs: Most Recent Vital Signs Temp Pulse Resp BP Pulse Ox 36.4 C L 66 18 113/92 H 97 08/30/23 10:10 08/30/23 10:10 08/30/23 10:10 08/30/23 10:10 08/30/23 10:10 Pain Score Most Recent Pain Score: Most Recent Pain Score Pain Level 0 08/30/23 10:10 Assessment Mental Status: Awake (Alert & Oriented to Patient Baseline) Airway and Respiratory Function: Patent airway with normal (patient baseline) respiratory exam Cardiovascular Function: Hemodynamically Stable Hydration Status: Adequately Hydrated Nausea & Vomiting: No Nausea or Vomiting Pain: Pt. Denies Any Pain Peripheral Nerve Block: Patient did not receive a nerve block
== END 2023-08-30 10:40 | disposition home or self-care (01) ==
PROVIDERS: PCP Family Medicine; Visit Provider Surgery
PROC: 0DJD8ZZ Inspection of Lower Intestinal Tract, Via Natural or Artificial Opening Endoscopic (ICD-10-PCS; CPT 45378; principal; 2023-08-30 09:45)
DX: Z12.11 Encounter for screening for malignant neoplasm of colon (principal); D12.4 Benign neoplasm of descending colon
CPT/HCPCS: 45380; 88305; J2001

== ENCOUNTER 2025-06-14 15:13 | Outpatient (REF) | payer BC, SELFPAY ==
[2025-06-14 19:26] LABS: Hemoglobin A1C 4.6 % (<5.7)
[2025-06-14 19:36] LABS: Anion Gap 8.6 mmol/L (3-11); BUN 14 mg/dL (7-18); CO2 28.4 mmol/L (21.0-32.0); Calcium 9.2 mg/dL (8.5-10.1); Calculated LDL 78 mg/dL (<100); Chloride 104 mmol/L (98-107); Cholesterol 163 mg/dL (<200); Estimated GFR 106.01 (mL/min/1.73m2); Glucose 108 mg/dL (74-106); HDL Cholesterol 74 mg/dL (>or=40); Potassium 4.0 mmol/L (3.5-5.1); Sodium 141 mmol/L (136-145); TSH 0.58 uIU/mL (0.36-3.74); Triglyceride 58 mg/dL (<150); Vitamin B12 268 pg/mL (193-986)
== END 2025-06-14 15:14 | disposition home or self-care (01) ==
LOC: NCHCN 15:13
PROVIDERS: PCP Family Medicine; Visit Provider Student in an Organized Health Care Education/Training Program
DX: Z13.220 Encounter for screening for lipoid disorders (principal); Z13.1 Encounter for screening for diabetes mellitus; K14.8 Other diseases of tongue; Z13.228 Encounter for screening for other metabolic disorders
CPT/HCPCS: 80048; 80061; 82607; 83036; 84443